=== PATIENT | female | born 1990 | race Caucasian/White ===

== ENCOUNTER 2021-06-18 10:27 | Day surgery (SDC) | payer OTHER | END 2021-06-19 02:00 | disposition home or self-care (01) | LOC: CIR.AMB 10:27 | PROVIDERS: ATTEND Obstetrics & Gynecology | DX: Z30.432 Encounter for removal of intrauterine contraceptive device (principal); Z86.16 Personal history of COVID-19; E07.89 Other specified disorders of thyroid ==